=== PATIENT | female | born 1995 | race Caucasian/White ===

== ENCOUNTER 2018-01-26 13:45 | Emergency (ER) | payer SELFPAY ==
[~2018-01-26] VITALS: Ht 160 cm; Wt 63.5 kg
[2018-01-26 14:09] VITALS: BP 130/78
--- NOTE | 2018-01-26 15:00 | NUR ---
PATIENT AMBULATED TO ER BED 12
--- NOTE | 2018-01-26 15:16 | NUR ---
PATIENT PRESENTS TO ED WITH CLUSTER RASH TO MIDLINE LOWER BACK RADIATING LEFT HIP AND L LOWER ABD . PT STATES . DENIES N/V/D; SKIN IS PINK/WARM/DRY; AAOX4 WITH EVEN AND STEADY GAIT; LUNGS CLEAR BL; HR EVEN AND REGULAR; PT DENIES ANY FEVER, CP, SOB, OR COUGH AT THIS TIME; PATIENT STATES PAIN OF 2/10 AT THIS TIME; VSS; PATIENT POSITIONED FOR COMFORT; HOB ELEVATED; BEDRAILS UP X2; BED DOWN. ER MD MADE AWARE OF PT STATUS.
[2018-01-26 16:02] VITALS: BP 116/78
== END 2018-01-26 16:00 | disposition home or self-care (01) ==
LOC: MED 13:45
DX: B02.9 Zoster without complications (principal)
CPT/HCPCS: 99281